=== PATIENT | male | born 1955 | race Caucasian/White ===

== ENCOUNTER 2017-09-11 12:25 | Day surgery (SDC) | payer OTHER ==
[2017-09-11] MEDS ORDERED: PROPOFOL 40 ML (15:10)
[2017-09-11] MEDS ORDERED: LIDOCAINE 2% (SDV) 5 ML INJ (15:10)
== END 2017-09-11 15:49 | disposition home or self-care (01) ==
LOC: GIL 12:25
DX: K31.7 Polyp of stomach and duodenum (principal); K20.8 Other esophagitis; K29.60 Other gastritis without bleeding; I10 Essential (primary) hypertension; E78.5 Hyperlipidemia, unspecified
CPT/HCPCS: 43239; 88305; 88312; 88313